=== PATIENT | female | born 1940 | race Caucasian/White ===

== ENCOUNTER 2016-08-24 18:54 | Emergency (ER) | payer OTHER ==
[~2016-08-24] VITALS: Ht 165.1 cm; Wt 72.6 kg
--- NOTE | 2016-08-24 20:41 | RADIOLOGY REPORT ---
EXAMINATION: XR RIGHT HIP WITH AP PELVIS CLINICAL INFORMATION: Right hip pain. Fall. COMPARISON: None TECHNIQUE: AP and frog-leg lateral views of the right hip and an AP view of the pelvis. FINDINGS: There is a mildly comminuted fracture of the right superior pubic ramus. No discrete fractures are identified in the remainder of the right hemipelvis right proximal femur appears intact. There is minimal degenerative arthritis in the hips. More mild to moderate degenerative arthritis present in the SI joints. Facet arthropathy and degenerative disc disease are present in the lower lumbar spine. Soft tissues are unremarkable. IMPRESSION: 1. Right superior pubic ramus fracture. No additional fractures are identified, though a second nondisplaced fracture of the pelvis is likely. Consider correlation with CT for further evaluation. 2. Minimal degenerative arthritis in the hip joints and more mild to moderate degenerative arthritis in the SI joints.
--- NOTE | 2016-08-24 20:45 | ED GENERAL ADULT ---
History of Present Illness General Chief Complaint: Hip Injury Stated Complaint: FELL TODAY ON FRONT STEPS, RIGHT HIP PAIN Source: patient, family Exam Limitations: no limitations Vital Signs & Intake/Output Vital Signs & Intake/Output Vital Signs Date Time Temp Pulse Resp B/P Pulse O2 O2 Flow FiO2 Ox Delivery Rate 08/24 2115 98.6 84 18 128/78 98 Room Air 08/24 1903 97.5 84 18 161/76 98 Room Air Allergies Coded Allergies: No Known Drug Allergies (08/24/16) Reconcile Medications Tylenol With Codeine (Tylenol With Codeine #3 Tablet) 300 MG-30 MG TABLET 1 TAB PO Q8P PRN PAIN Triage Note: PT STATES THAT SHE LOSS HER FOOTING AND FELL ONTO HER R SIDE TODAY AROUND 1330, COMPLAINSOF R SIDE PELVIC PAIN , WAS ABLE TO GET UP ON HER OWN AND WALK , BUT STATES THAT SHE HAS A LOT OF PAIN WHEN SHE AMBULATES. TOOK TYLENOL FOR THE PAIN Triage Nurses Notes Reviewed? yes HPI: Patient states that earlier today she was on her front stoop when she lost her balance and fell down 2 steps landing on the grass on her right side. Since the fall she has been having pain to her right groin. The pain increases with ambulation. There is no radiation of the pain. The pain is sharp in nature. At its worst the pain is 8 out of 10 and at rest the pain is 5 out of 10. Patient states that she did hit her head but there was no loss of consciousness. There is no headache or blurred vision. There is no nausea or vomiting. There is no neck pain. There is no shortness of breath. On asking for review of systems patient states that she has been having exertional chest pain with exertional shortness of breath both of which are relieved with rest over the past few months. Patient denies any episodes today. Patient has not seen her primary care physician in the past few years. Patient states that she goes to [facility] and takes vitamins. Past History Travel History Traveled to [place] past 21 day No Medical History Any Pertinent Medical History? none (BUT HASN'T SEEN PMD IN YEARS) Neurological: NONE EENT: NONE Cardiovascular: NONE Respiratory: NONE Gastrointestinal: NONE Hepatic: NONE Renal: NONE Musculoskeletal: NONE Psychiatric: NONE Endocrine: NONE Blood Disorders: NONE Cancer(s): NONE Tetanus Vaccine: Surgical History Surgical History: non-contributory Psychosocial History What is your primary language Moroccan Tobacco Use: Never used ETOH Use: denies use Illicit Drug Use: denies illicit drug use Family History Hx Contributory? No Review of Systems Review of Systems Constitutional: Reports: no symptoms. EENTM: Reports: no symptoms. Respiratory: Reports: see HPI, short of breath. Cardiovascular: Reports: see HPI, chest pain. GI: Reports: no symptoms. Genitourinary: Reports: no symptoms. Musculoskeletal: Reports: see HPI, joint pain. Skin: Reports: no symptoms. Neurological/Psychological: Reports: no symptoms. Hematologic/Endocrine: Reports: no symptoms. Immunologic/Allergic: Reports: no symptoms. All Other Systems: Reviewed and Negative Physical Exam Physical Exam General Appearance: well developed/nourished, alert, awake Head: atraumatic, normal appearance Eyes: Bilateral: PERRL, EOMI. Ears, Nose, Throat: normal pharynx, normal ENT inspection, hearing grossly normal Neck: normal inspection, supple, full range of motion, no midline tenderness Respiratory: normal breath sounds, chest non-tender, no respiratory distress, lungs clear Cardiovascular: regular rate/rhythm, normal peripheral pulses Gastrointestinal: normal bowel sounds, soft, non-tender, no organomegaly Back: normal inspection, normal range of motion Extremities: normal inspection, normal capillary refill, no edema, PAIN TO RIGHT GROIN WITH ROM Neurologic/Psych: no motor/sensory deficits, awake, alert, oriented x 3, normal mood/affect Skin: intact, normal color, warm/dry Lymphatic: no anterior cervical clifton Core Measures ACS in differential dx? No CVA/TIA Diagnosis: No Severe Sepsis Present: No Septic Shock Present: No Progress Differential Diagnoses I considered the following diagnoses in my evaluation of the patient: [Fracture, strain, contusion] Plan of Care: X-rays Diagnostic Imaging: Viewed by Me: Radiology Read. Discussed w/RAD: Radiology Read. Radiology Impression: PATIENT: VLADISLAV CLARK PRESENT AGE: 75 PATIENT ACCOUNT NO: [id number] : 41 LOCATION: [facility] ORDERING PHYSICIAN: TOMY BHANDARI SERVICE DATE: 08/24/16 EXAM TYPE: RAD - XRY-HIP 2-3 VIEWS, RIGHT EXAMINATION: XR RIGHT HIP WITH AP PELVIS CLINICAL INFORMATION: Right hip pain. Fall. COMPARISON: None TECHNIQUE: AP and frog-leg lateral views of the right hip and an AP view of the pelvis. FINDINGS: There is a mildly comminuted fracture of the right superior pubic ramus. No discrete fractures are identified in the remainder of the right hemipelvis right proximal femur appears intact. There is minimal degenerative arthritis in the hips. More mild to moderate degenerative arthritis present in the SI joints. Facet arthropathy and degenerative disc disease are present in the lower lumbar spine. Soft tissues are unremarkable. IMPRESSION: 1. Right superior pubic ramus fracture. No additional fractures are identified, though a second nondisplaced fracture of the pelvis is likely. Consider correlation with CT for further evaluation. 2. Minimal degenerative arthritis in the hip joints and more mild to moderate degenerative arthritis in the SI joints. DICTATED BY: NATHAN KIRKLAND MD DATE/TIME DICTATED:08/24/162034 CLINICAL APPLICATIONS MANAGER:RUTHY DATE/TIME TRANSCRIBED:08/24/162034 CONFIDENTIAL, DO NOT COPY WITHOUT APPROPRIATE AUTHORIZATION. <Electronically signed in Other Vendor System> SIGNED BY: NATHAN KIRKLAND MD 08/24/162040 Initial ED EKG: none Comments: Family bedside. I emphatically stressed to the patient the importance of following up with her primary care physician. I also stressed the fact that if she gets any chest pain or shortness of breath she should call 911 immediately. Departure Departure Disposition: HOME OR SELF CARE Condition: Stable Clinical Impression Primary Impression: Fracture of right superior pubic ramus Referrals: CODY DUFFY MD (PCP/Family) Additional Instructions: IT IS VERY IMPORTANT TO FOLLOW UP WITH DR. DUFFY REGARDING THE EXERTIONAL CHEST PAIN AND SHORTNESS OF BREATH THAT YOU HAVE BEEN HAVING. PLEASE RETURN TO THE ER IMMIDEATELY IF YOU HAVE ANY MORE CHEST PAIN. TAKE TYLENOL WITH CODEINE NEEDED FOR THE PAIN IN YOUR HIP. CODEINE IS VERY CONSTIPATING SO TAKE A STOOL SOFTENER WHILE ON IT. PLEASE RETURN FOR ANY CONCERNS Departure Forms: Customer Survey General Discharge Information Prescriptions: Current Visit Scripts Tylenol With Codeine (Tylenol With Codeine #3 Tablet) 1 TAB PO Q8P PRN PAIN #20 TAB Critical Care Note Critical Care Note Critical Care Time: non-applicable
[2016-08-24] MEDS ORDERED: TYLENOL WITH C1 EACH PO (21:02)
[2016-08-24 21:16] VITALS: BP 128/78
== END 2016-08-24 21:21 ==
LOC: ERH 18:54
DX: M25.551 Pain in right hip (principal); S32.511A Fracture of superior rim of right pubis, initial encounter for closed fracture; W10.9XXA Fall (on) (from) unspecified stairs and steps, initial encounter
CPT/HCPCS: 73502-RT